=== PATIENT | female | born 1960 | race Caucasian/White ===

== ENCOUNTER → 2018-09-28 18:32 | Outpatient (CLI) | payer BC ==
[2012-07-25 08:20] VITALS: BMI 25.9
== END | disposition home or self-care (01) ==
LOC: D.MAMMO 09-17 13:00
DX: Z12.31 Encounter for screening mammogram for malignant neoplasm of breast (principal)

== ENCOUNTER 2020-11-17 18:43 | Outpatient (CLI) | payer BC ==
[2012-07-25 08:20] VITALS: BMI 25.9
== END 2020-11-17 23:59 | disposition home or self-care (01) ==
LOC: D.MAMMO 18:43
PROVIDERS: ATTEND Family Medicine
DX: Z12.31 Encounter for screening mammogram for malignant neoplasm of breast (principal)

== ENCOUNTER 2020-12-07 13:00 | Outpatient (CLI) | payer BC ==
[2012-07-25 08:20] VITALS: BMI 25.9
== END 2020-12-07 23:59 | disposition home or self-care (01) ==
LOC: D.MAMMO 13:00
PROVIDERS: ATTEND Family Medicine
DX: R92.8 Other abnormal and inconclusive findings on diagnostic imaging of breast (principal)